=== PATIENT | female | born 1985 | race Caucasian/White ===

== ENCOUNTER 2019-07-27 18:35 | Emergency (ER) | payer OTHER ==
[~2019-07-27] VITALS: Ht 167.6 cm; Wt 63.5 kg
[2019-07-27 18:50] VITALS: BP 122/63
--- NOTE | 2019-07-27 18:50 | NUR ---
PT AMBULATED TO ER BED 03
--- NOTE | 2019-07-27 19:00 | NUR ---
C/O GENERALIZED BODY RASH X 1 WEEK. DENIES NEW FOODS/SOAP. PAIN 5/10 WITH ITCHING. PMH- DENIES
--- NOTE | 2019-07-27 19:00 | NUR ---
PT DENIES N/V/D, FEVER OR CHILLS
--- NOTE | 2019-07-27 19:01 | NUR ---
BED IS DWON, LOCKED, BED RAIL X 1
--- NOTE | 2019-07-27 19:14 | NUR ---
REPORT GIVEN TO ABEL CASTILLO
[2019-07-27 19:38] VITALS: BP 127/79
--- NOTE | 2019-07-27 19:38 | NUR ---
Patient discharged with v/s stable. Written and verbal after care instructions given and explained. Patient verbalized understanding. Ambulatory with steady gait. All questions addressed prior to discharge. Advised to follow up with PMD.
== END 2019-07-27 19:38 | disposition home or self-care (01) ==
LOC: MED 18:35
DX: O26.892 Other specified pregnancy related conditions, second trimester (principal); L50.9 Urticaria, unspecified; Z3A.20 20 weeks gestation of pregnancy
CPT/HCPCS: 99281